=== PATIENT | male | born 1965 | race Caucasian/White ===

== ENCOUNTER 2023-01-26 10:46 | Emergency (ER) | payer OTHER ==
[~2023-01-26] VITALS: Ht 167.6 cm; Wt 79.4 kg
[2023-01-26] MEDS ORDERED: ZOLOFT25 MG PO (10:55)
[2023-01-26] MEDS ORDERED: OMEPRAZOLE20 MG PO (10:55)
[2023-01-26 11:07] LABS: BASOPHILS 0.5 % (0-2); EOSINOPHILS 4.3 % (0-6); HEMATOCRIT 38.3 % (35.0-50.0); LYMPHOCYTES 23.2 % (24-44); MCH 32.2 (27-36); MCV 94.7 fl (81-99); MONOCYTES 10.4 % (0-12); NEUTROPHILS 61.6 % (39-80); PLATELET COUNT 245 K/uL (140-440); RBC 4.04 M/ul (4.3-5.7); RDW 13.4 (10.5-15.0)
[2023-01-26 11:21] LABS: ALBUMIN 3.4 g/dL (3.4-5.0); ALBUMIN/GLOBULIN RATIO 1.31 (1.1-2.4); ANION GAP 13.8 (7-21); BILIRUBIN, TOTAL 0.7 ng/dL (0.2-1.0); BUN/CREATININE RATIO 16.52 (6.0-28.6); CALCIUM 8.4 mg/dL (8.5-10.1); CREATININE, SERUM 1.21 mg/dL (0.70-1.30); MAGNESIUM 1.9 mg/dL (1.8-2.4); POTASSIUM 3.8 mmol/L (3.5-5.1)
[2023-01-26 12:38] LABS: INR 1.05 (0.80-1.30); PROTIME 13.3 Sec (11.2-14.2)
[2023-01-26 12:40] LABS: PARTIAL THROMBOPLASTIN TIME 22.9 Sec (22.9-41.3)
[2023-01-26] MEDS ORDERED: ONDANSETRON ODT8 MG PO (14:05)
[2023-01-26 14:19] VITALS: BP 98/65
--- NOTE | 2023-01-26 21:32 | EKG ---
[facility] [address] [facility] [place] [address] Signed Normal sinus rhythm Nonspecific ST abnormality Abnormal ECG No previous ECGs available Confirmed by Renetta Cochran MD () on 01/26/2023 9:32:36 PM Electronically Signed By: RENETTA COCHRAN MD 01/26/232131 PATIENT NAME: MELLISA ONEAL Electrocardiogram DATE OF : 63 PHYSICIAN: RENETTA COCHRAN MD REPORT #: [id number] REPORT IS CONFIDENTIAL AND NOT TO BE RELEASED WITHOUT AUTHORIZATION
== END 2023-01-26 14:20 | disposition home or self-care (01) ==
LOC: ED 10:46
PROVIDERS: Emergency Medicine
DX: R42 Dizziness and giddiness (principal); Z79.899 Other long term (current) drug therapy
CPT/HCPCS: 36415; 70450; 70496; 70498; 70551; 80053; 83735; 85025; 85610; 85730; 93005; 93010; 99284-25; J2405; J7030; Q9967